=== PATIENT | male | born 1960 | race American Indian/Alaskan Native ===

== ENCOUNTER 2021-03-22 19:34 | Inpatient (IN) | payer SELFPAY ==
[2021-03-22] MEDS ORDERED: MORPHINE 4 MG/1 ML INJ IV ONE ×2 (21:44→23:58)
[2021-03-22] MEDS ORDERED: ONDANSETRON 4 MG/2 ML INJ IV ONE (21:44)
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
[2021-03-22] MEDS ORDERED: MORPHINE 2 MG/1 ML INJ ONE ×2 (22:00→23:59)
[2021-03-22 22:04] LABS: Hematocrit 52.2 % (35.5-45.6); Hemoglobin 16.7 gm/dl (11.8-15.2); Mean Corpuscular HGB Conc 32 % (32-34); Mean Corpuscular Volume 91 fl (84-94); Platelet Count 264 K/mm3 (140-440); Red Blood Count 5.75 M/mm3 (3.65-5.03); Red Cell Distribution Width 14.8 % (13.2-15.2)
[2021-03-22 22:20] LABS: BUN/Creatinine Ratio 11; Blood Urea Nitrogen 10 mg/dL (9-20); Calcium 10.4 mg/dL (8.4-10.2); Hemolysis Index 41
[2021-03-22 23:31] LABS: Myelocytes # (Manual) 0.1 K/mm3; Total Cells Counted 100
[2021-03-22 23:34] LABS: Platelet Estimate Consistent w Auto; Target Cells 1+
--- NOTE | 2021-03-22 23:50 | Cat Scan Report ---
CT ABDOMEN AND PELVIS WITH IV CONTRAST INDICATION: Abdominal Pain inguinal hernia. COMPARISON: None available. TECHNIQUE: All CT scans at this facility use dose modulation, automated exposure control, iterative reconstructi on or weight based dosing, when appropriate, to reduce radiation dose to as low as reasonably achieva ble. FINDINGS: Lung Bases: No significant abnormality. Skeletal System: No acute abnormality. ABDOMEN: Liver: No significant abnormality. Gallbladder: No significant abnormality. Bile Ducts: No significant abnormality. Adrenals: There is mild thickening of the adrenal glands. Right Kidney: No significant abnormality. Left Kidney: No significant abnormality. Pancreas: No significant abnormality. Spleen: No significant abnormality. Upper GI tract: Stomach is dilated with fluid. Proximal and mid small bowel are dilated with fluid. T ransition point is seen within small bowel entering the large left inguinal hernia. Lymph Nodes: No significant adenopathy. Aorta: No significant abnormality. Additional Findings: No significant abnormality. PELVIS: Colon: No acute abnormality. Urinary Bladder and Distal Ureters: No significant abnormality. Appendix: No significant abnormality. Lymph Nodes: No significant adenopathy. Additional Findings: Large left internal hernia extending into the scrotum contains a short segment o f colon, numerous loops of small bowel, and a small amount of fluid. IMPRESSION: 1. High-grade small bowel obstruction secondary to large, bowel containing left inguinal hernia. 2. Incidental findings, as above. Signer Name: Дмитрий Trinidad MD Signed: 03/22/2021 11:46 PM Workstation Name: [id number]
[2021-03-22] MEDS ORDERED: HYDROcodone/ACETAMINOPHEN 5-325 MG TAB PO ONE (23:58)
[2021-03-23] MEDS ORDERED: SODIUM CHLORIDE 0.9% 1000 ML 1,000 ML IV ONE ×2 (00:19)
[2021-03-23] MEDS ORDERED: ONDANSETRON 4 MG/2 ML INJ IV PRN ×2 (01:49→18:47)
[2021-03-23] MEDS ORDERED: ACETAMINOPHEN 325 MG TAB PO PRN (01:49)
--- NOTE | 2021-03-23 02:07 | History and Physical Report ---
History of Present Illness Date of examination: 03/23/21 Date of admission: 03/23/2021 Chief complaint: Abdominal Pain History of present illness: 60-year-old -[place] male with no significant past medical history except for hernia repair in the past presenting to the emergency room today complaining of abdominal pain. Abdominal pain is said to be in the left lower abdomen and the left scrotal area. He has been having associated nausea and vomiting. He indicates he has been having some bilious vomitus. He denies any diarrhea denies any constipation. Patient was seen at [facility] about 2 years ago and was supposed to be having inguinal hernia surgery sometime in August of this year however, surgery was postponed because of the Covid pandemic. Work-up in the emergency room today was significant for hemoglobin of 16.7 and hematocrit of 52.2. Patient had a calcium level of 10.4. CT of the abdomen and pelvis reveals high-grade small bowel obstruction secondary to large bowel containing left inguinal hernia. General surgeon Dr. Montero has been consulted by the ER physician. Past History Past Medical History: No medical history Past Surgical History: hernia repair Social history: smoking (Current daily smoker) Family history: no significant family history Medications and Allergies Allergies Allergy/AdvReac Type Severity Reaction Status Date / Time No Known Allergies Allergy Unverified 03/22/21 19:51 Active Meds: Active Medications Acetaminophen (Acetaminophen 325 Mg Tab) 650 mg PO Q4H PRN PRN Reason: Pain MILD(1-3)/Fever >100.5/CROWE Sodium Chloride (Nacl 0.9% 1000 Ml) 1,000 mls @ 125 mls/hr IV DIRECT OMARI Morphine Sulfate (Morphine 2 Mg/1 Ml Inj) 2 mg IV Q4H PRN PRN Reason: Pain, Moderate (4-6) Morphine Sulfate (Morphine 2 Mg/1 Ml Inj) 4 mg IV Q4H PRN PRN Reason: Pain , Severe (7-10) Ondansetron HCl (Ondansetron 4 Mg/2 Ml Inj) 4 mg IV Q8H PRN PRN Reason: Nausea And Vomiting Sodium Chloride (Sodium Chloride 0.9% 10 Ml Flush Syringe) 10 ml IV BID OMARI Sodium Chloride (Sodium Chloride 0.9% 10 Ml Flush Syringe) 10 ml IV PRN PRN PRN Reason: LINE FLUSH Review of Systems Constitutional: no fever, no chills Ears, nose, mouth and throat: no nasal congestion, no sore throat Cardiovascular: no chest pain, no palpitations Respiratory: no cough, no shortness of breath Gastrointestinal: abdominal pain, nausea, vomiting, no diarrhea, no constipation Genitourinary Male: no dysuria, no hematuria, no nocturia Musculoskeletal: no neck pain, no low back pain Integumentary: no rash, no pruritis Neurological: no headaches, no confusion Psychiatric: no anxiety, no depression Endocrine: no polyphagia, no polydipsia, no polyuria, no nocturia Exam - Constitutional Vitals: Temp Pulse Resp BP Pulse Ox 98.5 F 109 H 24 160/98 98 03/22/21 19:47 03/22/21 19:47 03/22/21 19:47 03/22/21 19:47 03/22/21 19:47 General appearance: Present: no acute distress, well-nourished - EENT Eyes: Present: PERRL, EOM intact. Absent: scleral icterus ENT: hearing intact, clear oral mucosa, dentition normal - Neck Neck: Present: supple, normal ROM - Respiratory Respiratory effort: normal Respiratory: bilateral: CTA - Cardiovascular Rhythm: regular Heart Sounds: Present: S1 & S2. Absent: systolic murmur, diastolic murmur, rub, click - Extremities Extremities: no ischemia, pulses intact, pulses symmetrical, No edema, normal temperature, normal color, Full ROM Peripheral Pulses: within normal limits - Abdominal General gastrointestinal: Present: soft, tender (Mild tenderness left lower quadrant ,no rebound tenderness and no guarding), non-distended, normal bowel sounds, hernia (Huge non-reducible left inguinal hernia.). Absent: mass - Integumentary Integumentary: Present: clear, warm, dry, normal turgor. Absent: rash - Musculoskeletal Musculoskeletal: strength equal bilaterally - Psychiatric Psychiatric: appropriate mood/affect, intact judgment & insight, memory intact, cooperative - Neurologic Neurologic: CNII-XII intact, no focal deficits, moves all extremities Results - Labs CBC & Chem 7: 03/22/21 21:48 03/22/21 21:48 Labs: Abnormal lab results 03/22/21 03/22/21 Range/Units 21:48 21:48 RBC 5.75 H (3.65-5.03) M/mm3 Hgb 16.7 H (11.8-15.2) gm/dl Hct 52.2 H (35.5-45.6) % Seg Neuts % (Manual) 93.0 H (40.0-70.0) % Lymphocytes % (Manual) 5.0 L (13.4-35.0) % Seg Neutrophils # Man 10.2 H (1.8-7.7) K/mm3 Lymphocytes # (Manual) 0.6 L (1.2-5.4) K/mm3 Chloride 97.6 L (98-107) mmol/L Carbon Dioxide 20 L (22-30) mmol/L Glucose 130 H (75-100) mg/dL Calcium 10.4 H (8.4-10.2) mg/dL Assessment and Plan - Patient Problems (1) Incarcerated left inguinal hernia Current Visit: Yes Status: Acute Plan to address problem: General surgery has been consulted for evaluation and recommendations. Meanwhile we will place on analgesic medications as needed. (2) Small bowel obstruction Current Visit: Yes Status: Acute Plan to address problem: Secondary to the incarcerated inguinal hernia. Patient currently n.p.o. NG tube also to be placed. Will await further evaluation by general surgery. (3) DVT prophylaxis Current Visit: Yes Status: Acute Plan to address problem: Patient placed on sequential compression device. (4) Full code status Current Visit: Yes Status: Acute Plan to address problem: Patient is full code.
[2021-03-23] MEDS: MORPHINE 2 MG/1 ML INJ IV PRN ×3 (04:38→13:46)
[2021-03-23] MEDS: SODIUM CHLORIDE 0.9% 1000 ML 1,000 ML IV SCH ×2 (04:39→11:16)
[2021-03-23] MEDS ORDERED: PHENOL 1.4% 177 ML BOTTLE MM PRN (10:18)
--- NOTE | 2021-03-23 13:20 | Event Note ---
Date: 03/23/21 Patient seen and examined at the bedside. Currently with NG tube to suction. Reports improvement in abdominal pain. Awaiting Surgical evaluation for next steps.
--- NOTE | 2021-03-23 13:34 | Anesthesia Consultation ---
Anesthesia Consult and Med Hx Date of service: 03/23/21 - Airway Anesthetic Teeth Evaluation: Good ROM Head & Neck: Adequate Mental/Hyoid Distance: Adequate Mallampati Class: Class II Intubation Access Assessment: Good - Pulmonary Exam CTA: Yes - Cardiac Exam Cardiac Exam: No Murmur - Pre-Operative Health Status ASA Pre-Surgery Classification: ASA2 Proposed Anesthetic Plan: General - Pre-Anesthesia Comment Pre-Anesthesia Comments: right side cysts chin and neck - Pulmonary Hx Smoking: Yes (1/3 pack a day) Hx Asthma: No COPD: No Hx Pneumonia: No - Cardiovascular System Hx Hypertension: Yes - Endocrine Hx End Stage Renal Disease: No - Other Systems Hx Alcohol Use: No Hx Cancer: No - Additional Comments Anesthesia Medical History Comments: bowel obstruction possibly to incarcerated L inguinal hernia
--- NOTE | 2021-03-23 13:35 | Anesthesia Day of Surgery ---
Anesthesia Day of Surgery - Day of Surgery Patient Examined: Yes Patient H&P Reviewed: Yes Patient is NPO: Yes
[2021-03-23] MEDS ORDERED: ROCURONIUM 50 MG/5 ML INJ IV ONE (15:45)
[2021-03-23] MEDS ORDERED: fentaNYL 100 MCG/2 ML INJ ONE (15:45)
[2021-03-23] MEDS ORDERED: propofoL 200 MG/20 ML VIAL IV ONE (15:45)
[2021-03-23] MEDS ORDERED: LIDOCAINE MPF (2%) 20 MG/1 ML VIAL 5 ML ONE (15:45)
[2021-03-23] MEDS ORDERED: MIDAZOLAM 2 MG/2 ML INJ ONE ×2 (15:45→16:44)
--- NOTE | 2021-03-23 16:14 | Consultation ---
History of Present Illness Consult date: 03/23/21 Reason for consult: abdominal pain - History of present illness History of present illness: 60 yo male with abdominal pain, N/V secondary to a incarcerated LIH. Past History Past Medical History: No medical history Past Surgical History: hernia repair Social history: smoking (Current daily smoker) Family history: no significant family history Medications and Allergies Allergies Allergy/AdvReac Type Severity Reaction Status Date / Time No Known Allergies Allergy Unverified 03/22/21 19:51 Active Meds: Active Medications Acetaminophen (Acetaminophen 325 Mg Tab) 650 mg PO Q4H PRN PRN Reason: Pain MILD(1-3)/Fever >100.5/CROWE Sodium Chloride (Nacl 0.9% 1000 Ml) 1,000 mls @ 125 mls/hr IV DIRECT [facility] Last Admin: 03/23/21 11:16 Dose: 125 mls/hr Documented by: Morphine Sulfate (Morphine 2 Mg/1 Ml Inj) 2 mg IV Q4H PRN PRN Reason: Pain, Moderate (4-6) Morphine Sulfate (Morphine 2 Mg/1 Ml Inj) 4 mg IV Q4H PRN PRN Reason: Pain , Severe (7-10) Last Admin: 03/23/21 13:46 Dose: 4 mg Documented by: Ondansetron HCl (Ondansetron 4 Mg/2 Ml Inj) 4 mg IV Q8H PRN PRN Reason: Nausea And Vomiting Last Admin: 03/23/21 08:31 Dose: 4 mg Documented by: Phenol (Phenol 1.4% 177 Ml Bottle) 1 spray MM Q4H PRN PRN Reason: Sore Throat Last Admin: 03/23/21 11:14 Dose: 1 spray Documented by: Sodium Chloride (Sodium Chloride 0.9% 10 Ml Flush Syringe) 10 ml IV BID OMARI Last Admin: 03/23/21 11:14 Dose: 10 ml Documented by: Sodium Chloride (Sodium Chloride 0.9% 10 Ml Flush Syringe) 10 ml IV PRN PRN PRN Reason: LINE FLUSH Review of Systems All systems: negative Exam Vital Signs Temp Pulse Resp BP Pulse Ox 98.5 F 109 H 24 160/98 98 03/22/21 19:47 03/22/21 19:47 03/22/21 19:47 03/22/21 19:47 03/22/21 19:47 - General physical appearance Positive: well developed, well nourished, no distress - Eyes Positive: PERRL, normal occular movement - ENT Positive: normal pinna, normal nares, normal mucosa, no hearing loss, no congestion - Neck Positive: no masses, no bruits, trachea midline, no venous distension - Respiratory Positive: normal expansion, normal respiratory effort, clear to auscultation - Cardiovascular Rhythm: regular Heart Sounds: Present: S1 & S2. Absent: rub, click - Extremities Extremities: no ischemia, pulses symmetrical, No edema - Breasts Breasts: normal, no mass, no skin changes - Abdomen Abdomen: Present: soft, bowel sounds hypoactive, other (There is a large, incarcerated, slightly tender LIH. ). Absent: tender, distended Hernia: none - Genitourinary Male Genitourinary: normal Female Genitourinary: normal - Integumentary no rash, no growths, no abnormal pigmentation - Neurologic Neurologic: alert and oriented to time, place and person, motor strength and sensation are grossly intact - Musculoskeletal normal gait, normal posture - Psychiatric Psychiatric: appropriate mood/affect, intact judgment & insight Results - Labs 03/22/21 21:48 03/22/21 21:48 Abnormal lab results 03/22/21 03/22/21 Range/Units 21:48 21:48 RBC 5.75 H (3.65-5.03) M/mm3 Hgb 16.7 H (11.8-15.2) gm/dl Hct 52.2 H (35.5-45.6) % Seg Neuts % (Manual) 93.0 H (40.0-70.0) % Lymphocytes % (Manual) 5.0 L (13.4-35.0) % Seg Neutrophils # Man 10.2 H (1.8-7.7) K/mm3 Lymphocytes # (Manual) 0.6 L (1.2-5.4) K/mm3 Chloride 97.6 L (98-107) mmol/L Carbon Dioxide 20 L (22-30) mmol/L Glucose 130 H (75-100) mg/dL Calcium 10.4 H (8.4-10.2) mg/dL Diabetes panel 03/22/21 Range/Units 21:48 Sodium 139 (137-145) mmol/L Potassium 4.6 (3.6-5.0) mmol/L Chloride 97.6 L (98-107) mmol/L Carbon Dioxide 20 L (22-30) mmol/L BUN 10 (9-20) mg/dL Creatinine 0.9 (0.8-1.3) mg/dL Glucose 130 H (75-100) mg/dL Calcium 10.4 H (8.4-10.2) mg/dL Calcium panel 03/22/21 Range/Units 21:48 Calcium 10.4 H (8.4-10.2) mg/dL Pituitary panel 03/22/21 Range/Units 21:48 Sodium 139 (137-145) mmol/L Potassium 4.6 (3.6-5.0) mmol/L Chloride 97.6 L (98-107) mmol/L Carbon Dioxide 20 L (22-30) mmol/L BUN 10 (9-20) mg/dL Creatinine 0.9 (0.8-1.3) mg/dL Glucose 130 H (75-100) mg/dL Calcium 10.4 H (8.4-10.2) mg/dL Adrenal panel 03/22/21 Range/Units 21:48 Sodium 139 (137-145) mmol/L Potassium 4.6 (3.6-5.0) mmol/L Chloride 97.6 L (98-107) mmol/L Carbon Dioxide 20 L (22-30) mmol/L BUN 10 (9-20) mg/dL Creatinine 0.9 (0.8-1.3) mg/dL Glucose 130 H (75-100) mg/dL Calcium 10.4 H (8.4-10.2) mg/dL - Imaging CT scan - abdomen: report reviewed CT scan - pelvis: report reviewed Assessment and Plan - Patient Problems (1) Incarcerated left inguinal hernia Current Visit: Yes Status: Acute Plan to address problem: 1) NG decompression 2) To OR for open repair and relief of SBO.
[2021-03-23] MEDS ORDERED: BUPIVACAINE/PF (0.5%) 5 MG/1 ML 30 ML VIAL INFILTRATI ONE ×2 (16:59→17:04)
[2021-03-23] MEDS ORDERED: SODIUM CHLORIDE 0.9% IRR 1,500 ML BOTTLE IR ONE (17:04)
[2021-03-23] MEDS ORDERED: HYDROmorphone 1 MG/1 ML INJ ONE (18:07)
[2021-03-23] MEDS ORDERED: ePHEDrine SULFATE 50 MG/1 ML INJ ONE (18:31)
[2021-03-23] MEDS ORDERED: NEOSTIGMINE 10MG/10 ML INJ MDV ONE (18:36)
[2021-03-23] MEDS ORDERED: GLYCOPYRROLATE 0.4 MG/2 ML INJ ONE ×2 (18:36)
[2021-03-23] MEDS ORDERED: HYDROmorphone 1 MG/1 ML INJ IV PRN ×2 (18:47)
[2021-03-23] MEDS ORDERED: ONDANSETRON 4 MG/2 ML INJ ONE (19:00)
[2021-03-23] MEDS ORDERED: KETOROLAC 30 MG/1 ML INJ ONE (19:00)
[2021-03-23] MEDS ORDERED: dexAMETHasone 20 MG/5 ML VIAL ONE (19:00)
--- NOTE | 2021-03-23 19:05 | Procedure Note ---
Date of procedure: 03/23/21 Pre-op diagnosis: SBO 2/2 incarcerated LIH Post-op diagnosis: same (Also, left hydrocele) Procedure: 1) Open repair of LIH 2) Left hydrocelectomy Description of procedure: Pt was placed supine on the OR table. GETA was administered. Lower abdomen, penis and scrotum were prepped and draped. The proposed incision was infiltrated with 8 ml of 0.5% Marcaine. A curvilinear suprapubic incision was made. SQ tissue was transected with the Bovie. Externa l oblique aponeurosis was exposed. The aponeurosis was incised over the inguinal canal through the external inguinal ring. Digital dissection was performed about the hernia sac in the scrotum until the hernia sac was delivered into the wound. During this manipulation, the incarcerated bowel was reduced. The sac initially thought to be the hernia sac was entered and was found to be a hydrocele. The hydrocele sac was excised. Further dissection resulted in identification of the hernia sac. The sac was entered and was dissected off of the cord structures. The hernia was determined to be of the indirect type. The broad based sac was dissected down to it's fascial margins and was excised. A Bassini type repair was performed by approximating the conjoined tendon medially to the shelving portion of Poupart's ligament laterally with multiple interrupted sutures of 0-Ethibond. The external oblique aponeurosis was approximated with a running suture of 3-0 Vicryl. Skin was approximated with a running subcuticular suture of 4-0 Monocryl. Skin glue was applied followed by a pressure dressing of 4 X 4's secured with Medipore tape. A scrotal support was also placed to help diminish the expected scrotal seroma. Pt tolerated the procedure well. Pt was taken to PACU in stable condition. Anesthesia: GETA Surgeon: YENI TRINIDAD Estimated blood loss: 50-100ml Pathology: none Condition: stable Disposition: PACU
--- NOTE | 2021-03-23 19:26 | Post Anesthesia Evaluation ---
- Post Anesthesia Evaluation Patient Participated: Yes Airway Patent: Yes Stable Respiratory Function: Yes Nausea/Vomiting: No Temp > 96.8F: Yes Pain Manageable: Yes Adequeate Hydration: Yes Anesthesia Complications: No Block Receding Appropriately: Not Applicable Patient on Ventilator: No
[2021-03-24] MEDS: SODIUM CHLORIDE 0.9% 1000 ML 1,000 ML IV SCH (04:12)
[2021-03-24 06:13] LABS: Basophils % (Auto) 0.1 % (0.0-1.8); Hematocrit 40.1 % (35.5-45.6); Hemoglobin 13.1 gm/dl (11.8-15.2); Lymphocytes # (Auto) 0.6 K/mm3 (1.2-5.4); Lymphocytes % (Auto) 5.1 % (13.4-35.0); Mean Corpuscular HGB Conc 33 % (32-34); Mean Corpuscular Volume 92 fl (84-94); Monocytes # (Auto) 0.8 K/mm3 (0.0-0.8); Monocytes % (Auto) 6.3 % (0.0-7.3); Platelet Count 197 K/mm3 (140-440); Red Blood Count 4.37 M/mm3 (3.65-5.03); Red Cell Distribution Width 14.7 % (13.2-15.2)
[2021-03-24 06:22] LABS: INR 0.96 (0.87-1.13)
[2021-03-24 06:27] LABS: BUN/Creatinine Ratio 16; Blood Urea Nitrogen 13 mg/dL (9-20); Calcium 7.7 mg/dL (8.4-10.2); Hemolysis Index 2
[2021-03-24] MEDS ORDERED: CALCIUM GLUCONATE 2,000 MG in SODIUM CHLORIDE 0.9% 100 ML IV ONE (09:00)
--- NOTE | 2021-03-24 14:47 | Progress Note ---
Assessment and Plan Assessment and plan: Patient is 60-year-old male with no significant past medical history who presented for worsening left inguinal pain and abdominal pain complicated by nausea and bilious, nonbloody vomiting. The patient was last seen at [facility] approximately 2 years ago, and he was supposed to have an inguinal he rnia repair in August 2020; however, the surgery was postponed in the setting of the Covid [address] abdomen/pelvis revealed high-grade small bowel obstruction secondary to a large bowel containing left inguinal hernia. #High-grade small bowel obstruction #Incarcerated left inguinal hernia -Status post left inguinal hernia repair (POD 1) by general surgery; appreciate recs -NG tube with intermittent suction in place for resolution of small bowel obstruction. Currently n.p.o. -Continue analgesic medications as needed. Remain mindful that opioids will slow down bowel transit. -Consider initiation of D5W in the setting of patient being n.p.o. -Continue to monitor Disposition Plan: Continue medical management. Total Time Spent with Patient (Minutes): 40 minutes History Interval history: Patient underwent correction of left inguinal hernia yesterday and was found to have bowel obstruction. Patient tolerated procedure well. Hospitalist Physical - Constitutional Vitals: Temp Pulse Resp BP Pulse Ox 98.2 F 51 L 18 141/72 98 03/24/21 11:05 03/24/21 11:05 03/24/21 11:05 03/24/21 11:05 03/24/21 11:05 General appearance: Present: no acute distress, well-nourished - EENT Eyes: Present: PERRL, EOM intact ENT: hearing intact, clear oral mucosa, dentition normal, other (NGT in place (on intermittent suction)) - Neck Neck: Present: supple, normal ROM - Respiratory Respiratory effort: normal - Cardiovascular Rhythm: regular Heart Sounds: Present: S1 & S2 - Extremities Extremities: no ischemia, pulses intact, pulses symmetrical, No edema, normal temperature, normal color Extremity abnormal: other (Pressure bandage on L groin at site of inguinal repair) - Abdominal General gastrointestinal: soft, non-tender, non-distended, normal bowel sounds - Integumentary Integumentary: Present: clear, warm, dry - Psychiatric Psychiatric: appropriate mood/affect, intact judgment & insight, memory intact, cooperative - Neurologic Neurologic: CNII-XII intact, moves all extremities - Allied Health Allied health notes reviewed: nursing Results - Labs CBC & Chem 7: 03/24/21 04:00 03/24/21 04:00 Labs: Laboratory Last Values WBC 12.4 K/mm3 (4.5-11.0) H 03/24/21 04:00 RBC 4.37 M/mm3 (3.65-5.03) 03/24/21 04:00 Hgb 13.1 gm/dl (11.8-15.2) D 03/24/21 04:00 Hct 40.1 % (35.5-45.6) D 03/24/21 04:00 MCV 92 fl (84-94) 03/24/21 04:00 MCH 30 pg (28-32) 03/24/21 04:00 MCHC 33 % (32-34) 03/24/21 04:00 RDW 14.7 % (13.2-15.2) 03/24/21 04:00 Plt Count 197 K/mm3 (140-440) 03/24/21 04:00 Lymph % (Auto) 5.1 % (13.4-35.0) L 03/24/21 04:00 [place] % (Auto) 6.3 % (0.0-7.3) 03/24/21 04:00 Eos % (Auto) 0.0 % (0.0-4.3) 03/24/21 04:00 Baso % (Auto) 0.1 % (0.0-1.8) 03/24/21 04:00 Lymph # (Auto) 0.6 K/mm3 (1.2-5.4) L 03/24/21 04:00 [place] # (Auto) 0.8 K/mm3 (0.0-0.8) 03/24/21 04:00 Eos # (Auto) 0.0 K/mm3 (0.0-0.4) 03/24/21 04:00 Baso # (Auto) 0.0 K/mm3 (0.0-0.1) 03/24/21 04:00 Add Manual Diff Complete 03/22/21 21:48 Total Counted 100 03/22/21 21:48 Seg Neutrophils % 88.5 % (40.0-70.0) H 03/24/21 04:00 Seg Neuts % (Manual) 93.0 % (40.0-70.0) H 03/22/21 21:48 Lymphocytes % (Manual) 5.0 % (13.4-35.0) L 03/22/21 21:48 Monocytes % (Manual) 1.0 % (0.0-7.3) 03/22/21 21:48 Myelocytes % 1.0 % 03/22/21 21:48 Nucleated RBC % Not Reportable 03/22/21 21:48 Seg Neutrophils # 11.0 K/mm3 (1.8-7.7) H 03/24/21 04:00 Seg Neutrophils # Man 10.2 K/mm3 (1.8-7.7) H 03/22/21 21:48 Band Neutrophils # 0.0 K/mm3 03/22/21 21:48 Lymphocytes # (Manual) 0.6 K/mm3 (1.2-5.4) L 03/22/21 21:48 Abs React Lymphs (Man) 0.0 K/mm3 03/22/21 21:48 Monocytes # (Manual) 0.1 K/mm3 (0.0-0.8) 03/22/21 21:48 Eosinophils # (Manual) 0.0 K/mm3 (0.0-0.4) 03/22/21 21:48 Basophils # (Manual) 0.0 K/mm3 (0.0-0.1) 03/22/21 21:48 Metamyelocytes # 0.0 K/mm3 03/22/21 21:48 Myelocytes # 0.1 K/mm3 03/22/21 21:48 Promyelocytes # 0.0 K/mm3 03/22/21 21:48 Blast Cells # 0.0 K/mm3 03/22/21 21:48 WBC Morphology Not Reportable 03/22/21 21:48 Hypersegmented Neuts Not Reportable 03/22/21 21:48 Hyposegmented Neuts Not Reportable 03/22/21 21:48 Hypogranular Neuts Not Reportable 03/22/21 21:48 Smudge Cells Not Reportable 03/22/21 21:48 Toxic Granulation Not Reportable 03/22/21 21:48 Toxic Vacuolation Not Reportable 03/22/21 21:48 Dohle Bodies Not Reportable 03/22/21 21:48 Pelger-Huet Anomaly Not Reportable 03/22/21 21:48 Wilbert Rods Not Reportable 03/22/21 21:48 Platelet Estimate Consistent w auto 03/22/21 21:48 Clumped Platelets Not Reportable 03/22/21 21:48 Plt Clumps, EDTA Not Reportable 03/22/21 21:48 Large Platelets Not Reportable 03/22/21 21:48 Giant Platelets Not Reportable 03/22/21 21:48 Platelet Satelliting Not Reportable 03/22/21 21:48 Plt Morphology Comment Not Reportable 03/22/21 21:48 RBC Morphology Not Reportable 03/22/21 21:48 Dimorphic RBCs Not Reportable 03/22/21 21:48 Polychromasia Not Reportable 03/22/21 21:48 Hypochromasia Not Reportable 03/22/21 21:48 Poikilocytosis Not Reportable 03/22/21 21:48 Anisocytosis Not Reportable 03/22/21 21:48 Microcytosis Not Reportable 03/22/21 21:48 Macrocytosis Not Reportable 03/22/21 21:48 Spherocytes Not Reportable 03/22/21 21:48 Pappenheimer Bodies Not Reportable 03/22/21 21:48 Sickle Cells Not Reportable 03/22/21 21:48 Target Cells 1+ 03/22/21 21:48 Tear Drop Cells Not Reportable 03/22/21 21:48 Ovalocytes Not Reportable 03/22/21 21:48 Helmet Cells Not Reportable 03/22/21 21:48 [place] Bodies Not Reportable 03/22/21 21:48 [place] Rings Not Reportable 03/22/21 21:48 Tru Cells Not Reportable 03/22/21 21:48 Bite Cells Not Reportable 03/22/21 21:48 Crenated Cell Not Reportable 03/22/21 21:48 Elliptocytes Not Reportable 03/22/21 21:48 Acanthocytes (Spur) Not Reportable 03/22/21 21:48 Rouleaux Not Reportable 03/22/21 21:48 Hemoglobin C Crystals Not Reportable 03/22/21 21:48 Schistocytes Not Reportable 03/22/21 21:48 Malaria parasites Not Reportable 03/22/21 21:48 Earl Bodies Not Reportable 03/22/21 21:48 Hem Pathologist Commnt No 03/22/21 21:48 PT 13.8 Sec. (12.2-14.9) 03/24/21 04:00 INR 0.96 (0.87-1.13) 03/24/21 04:00 Sodium 142 mmol/L (137-145) 03/24/21 04:00 Potassium 4.0 mmol/L (3.6-5.0) 03/24/21 04:00 Chloride 108.5 mmol/L (98-107) H 03/24/21 04:00 Carbon Dioxide 23 mmol/L (22-30) 03/24/21 04:00 Anion Gap 15 mmol/L 03/24/21 04:00 BUN 13 mg/dL (9-20) 03/24/21 04:00 Creatinine 0.8 mg/dL (0.8-1.3) 03/24/21 04:00 Estimated GFR > 60 ml/min 03/24/21 04:00 BUN/Creatinine Ratio 16 % 03/24/21 04:00 Glucose 92 mg/dL (75-100) 03/24/21 04:00 Calcium 7.7 mg/dL (8.4-10.2) L D 03/24/21 04:00 Adams/IV: Voiding Method Urinal Active Medications - Current Medications Current Medications: Generic Name Dose Route Start Last Admin Trade Name Freq PRN Reason Stop Dose Admin Acetaminophen 650 mg 03/23/21 01:49 Acetaminophen 325 Mg Tab PO Q4H PRN Pain MILD(1-3)/Fever >100.5/CROWE Hydromorphone HCl 0.25 mg 03/23/21 18:47 Hydromorphone 1 Mg/1 Ml Inj IV 03/24/21 18:46 Q10MIN PRN Pain, Moderate (4-6) Hydromorphone HCl 0.5 mg 03/23/21 18:47 Hydromorphone 1 Mg/1 Ml Inj IV 03/24/21 18:46 Q10MIN PRN Pain , Severe (7-10) Sodium Chloride 1,000 mls @ 125 mls/hr 03/23/21 02:00 03/24/21 04:12 Nacl 0.9% 1000 Ml IV 125 mls/hr DIRECT OMARI Administration Morphine Sulfate 2 mg 03/23/21 01:49 Morphine 2 Mg/1 Ml Inj IV Q4H PRN Pain, Moderate (4-6) Morphine Sulfate 4 mg 03/23/21 01:49 03/23/21 13:46 Morphine 2 Mg/1 Ml Inj IV 4 mg Q4H PRN Administration Pain , Severe (7-10) Ondansetron HCl 4 mg 03/23/21 01:49 03/23/21 08:31 Ondansetron 4 Mg/2 Ml Inj IV 4 mg Q8H PRN Administration Nausea And Vomiting Phenol 1 spray 03/23/21 10:18 03/23/21 11:14 Phenol 1.4% 177 Ml Bottle MM 1 spray Q4H PRN Administration Sore Throat Sodium Chloride 10 ml 03/23/21 10:00 03/24/21 09:42 Sodium Chloride 0.9% 10 Ml Flush Syringe IV 10 ml BID OMARI Administration Sodium Chloride 10 ml 03/23/21 01:49 Sodium Chloride 0.9% 10 Ml Flush Syringe IV PRN PRN LINE FLUSH Nutrition/Malnutrition Assess - Dietary Evaluation Nutrition/Malnutrition Findings: Nutrition Notes Start: 03/23/21 17:11 Freq: Status: Active Protocol: Document 03/23/21 17:11 JUDY (Rec: 03/23/21 17:26 JUDY [id number]) Nutrition Notes 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 Current Diet NPO (since B 03/23). Labs/Tests 03/22: Cl 97.6, CO2 20, Glu 130, Ca 10.4. Pertinent Medications 03/23: Nutritionally unremarkable. Height 5 ft 10 in Weight 72.575 kg [place] Body Weight (kg) 75.45 BMI 22.9 Weight Status Appropriate Subjective/Other Information RD consult for Skin risk assessment. Percent of energy/protein needs met: Pt currently on NPO. Burn Absent Trauma Absent GI Symptoms None Food Allergy No Skin Integrity/Comment Clear, warm, dry. Current % PO Other Minimum of two criteria No #1 Nutrition Diagnosis No nutrition diagnosis at this time Comments: Pt shows no signs of concern for Skin risk at the time. Is patient on ventilator? No Is Patient Ambulatory and/or Out of Bed No REE-([place] [facility]-confined to bed) 1855.284 Kcal/Kg value to use for calculation 30 Approximate Energy Requirements Using 2177 kcal/Kg Calculation Used for Recommendations Kcal/kg Additional Notes Protein: 1-1.2 g/Kg; 75-90 g/ day (from IBW+surgery). Fluids: 1 ml/Kcal, or as per MD. Nutrition Intervention Change Diet Order: Continue NPO, as per MD. When pertinent, advance to Regular Diet. Goal #1 Maintain body weight within +/ -3% of current BWt during LOS. Goal #2 Reach and maintain acceptable chemistry lab values during LOS. Follow-Up By: 03/25/21 Additional Comments Continue monitoring Hydration and BM. When pertinent, food tolerance and %PO intake of meals.
--- NOTE | 2021-03-24 17:25 | Progress Note ---
Assessment and Plan - Patient Problems (1) Incarcerated left inguinal hernia Current Visit: Yes Status: Acute Plan to address problem: 1) DC NG 2) CLD 3) CBC in the am Subjective Date of service: 03/24/21 Patient Reports: Positive: no new complaints, feels better, pain is less, flatus Objective Vital Signs - 12hr 03/24/21 03/24/21 03/24/21 05:56 10:00 11:05 Temperature 98.8 F 98.2 F Pulse Rate 50 L 51 L Respiratory 18 18 Rate Blood Pressure 127/70 141/72 O2 Sat by Pulse 97 98 98 Oximetry - Abdomen soft, not tender, bowel sounds normal, not distended, not rebound, not guarding - Labs 03/24/21 04:00 03/24/21 04:00 Diabetes panel 03/24/21 Range/Units 04:00 Sodium 142 (137-145) mmol/L Potassium 4.0 (3.6-5.0) mmol/L Chloride 108.5 H (98-107) mmol/L Carbon Dioxide 23 (22-30) mmol/L BUN 13 (9-20) mg/dL Creatinine 0.8 (0.8-1.3) mg/dL Glucose 92 (75-100) mg/dL Calcium 7.7 L D (8.4-10.2) mg/dL Calcium panel 03/24/21 Range/Units 04:00 Calcium 7.7 L D (8.4-10.2) mg/dL Pituitary panel 03/24/21 Range/Units 04:00 Sodium 142 (137-145) mmol/L Potassium 4.0 (3.6-5.0) mmol/L Chloride 108.5 H (98-107) mmol/L Carbon Dioxide 23 (22-30) mmol/L BUN 13 (9-20) mg/dL Creatinine 0.8 (0.8-1.3) mg/dL Glucose 92 (75-100) mg/dL Calcium 7.7 L D (8.4-10.2) mg/dL Adrenal panel 03/24/21 Range/Units 04:00 Sodium 142 (137-145) mmol/L Potassium 4.0 (3.6-5.0) mmol/L Chloride 108.5 H (98-107) mmol/L Carbon Dioxide 23 (22-30) mmol/L BUN 13 (9-20) mg/dL Creatinine 0.8 (0.8-1.3) mg/dL Glucose 92 (75-100) mg/dL Calcium 7.7 L D (8.4-10.2) mg/dL
[2021-03-24] MEDS: MORPHINE 2 MG/1 ML INJ IV PRN (17:53)
[2021-03-25] MEDS: SODIUM CHLORIDE 0.9% 1000 ML 1,000 ML IV SCH ×3 (06:16→23:11)
[2021-03-25] MEDS: MORPHINE 2 MG/1 ML INJ IV PRN ×3 (06:22→20:39)
[2021-03-25 10:59] LABS: Basophils % (Auto) 0.5 % (0.0-1.8); Eosinophils % (Auto) 0.4 % (0.0-4.3); Hematocrit 39.2 % (35.5-45.6); Hemoglobin 12.8 gm/dl (11.8-15.2); Lymphocytes # (Auto) 0.7 K/mm3 (1.2-5.4); Lymphocytes % (Auto) 7.8 % (13.4-35.0); Mean Corpuscular HGB Conc 33 % (32-34); Mean Corpuscular Volume 91 fl (84-94); Monocytes # (Auto) 0.4 K/mm3 (0.0-0.8); Monocytes % (Auto) 4.7 % (0.0-7.3); Platelet Count 180 K/mm3 (140-440); Red Blood Count 4.29 M/mm3 (3.65-5.03); Red Cell Distribution Width 14.7 % (13.2-15.2)
--- NOTE | 2021-03-25 11:03 | Progress Note ---
Assessment and Plan - Patient Problems (1) Incarcerated left inguinal hernia Current Visit: Yes Status: Acute Plan to address problem: 1) Okay for discharge. 2) F/u in my office in 2 weeks. 3) DC andrade 4) May shower tomorrow. 5) Regular diet 6) No lifting or straining 7) Rx - Narcotic of choice Subjective Date of service: 03/25/21 Patient Reports: Positive: no new complaints, feels better, pain is less, tolerating liquids well, flatus, bowel movement. Negative: blood in stool, nausea, vomiting, shortness of breath Objective Vital Signs - 12hr 03/25/21 03/25/21 03/25/21 05:11 06:22 06:52 Temperature 98.4 F Pulse Rate 58 L Respiratory 20 18 18 Rate Blood Pressure 169/70 O2 Sat by Pulse 100 Oximetry - Abdomen soft, not tender, bowel sounds normal, not distended, not rebound, not guarding - Labs 03/25/21 09:55 03/24/21 04:00
[2021-03-25 13:13] LABS: Blood Urea Nitrogen 12 mg/dL (9-20); Calcium 8.2 mg/dL (8.4-10.2); Hemolysis Index 19
[2021-03-25 13:17] LABS: BUN/Creatinine Ratio 17
--- NOTE | 2021-03-25 13:47 | Progress Note ---
Assessment and Plan Assessment and plan: Patient is 60-year-old male with no significant past medical history who presented for worsening left inguinal pain and abdominal pain complicated by nausea and bilious, nonbloody vomiting. The patient was last seen at [facility] approximately 2 years ago, and he was supposed to have an inguinal he rnia repair in August 2020; however, the surgery was postponed in the setting of the Covid [address] abdomen/pelvis revealed high-grade small bowel obstruction secondary to a large bowel containing left inguinal hernia. #High-grade small bowel obstruction #Incarcerated left inguinal hernia -Status post left inguinal hernia repair (POD 2) by general surgery; appreciate recs -NG tube discontinued and patient transitioned to regular diet per general surgery -Continue analgesic medications as needed. -Continue to monitor #Discharge planning -Patient being discharged in a.m. -Clinic follow-up with Dr. Montero (general surgery) in 2 weeks Disposition Plan: Discharging home tomorrow. Total Time Spent with Patient (Minutes): 30 minutes History Interval history: No acute events overnight. Hospitalist Physical - Constitutional Vitals: Temp Pulse Resp BP Pulse Ox 98.2 F 54 L 18 140/68 97 03/25/21 11:46 03/25/21 11:46 03/25/21 11:46 03/25/21 11:46 03/25/21 11:46 General appearance: Present: no acute distress, well-nourished - EENT Eyes: Present: PERRL, EOM intact ENT: hearing intact, clear oral mucosa, dentition normal - Neck Neck: Present: supple, normal ROM - Respiratory Respiratory effort: normal Respiratory: bilateral: CTA - Cardiovascular Rhythm: regular Heart Sounds: Present: S1 & S2 - Extremities Extremities: no ischemia, pulses intact, pulses symmetrical, No edema, normal temperature, normal color Peripheral Pulses: within normal limits - Abdominal General gastrointestinal: soft, tender, non-distended, normal bowel sounds Localized gastrointestinal: tender: LLQ (Appropriate tenderness at left inguinal hernia surgical site) - Integumentary Integumentary: Present: clear, warm, dry - Psychiatric Psychiatric: appropriate mood/affect, intact judgment & insight, memory intact, cooperative - Neurologic Neurologic: CNII-XII intact, moves all extremities - Allied Health Allied health notes reviewed: nursing Results - Labs CBC & Chem 7: 03/25/21 09:55 03/25/21 09:55 Labs: Laboratory Last Values WBC 9.5 K/mm3 (4.5-11.0) 03/25/21 09:55 RBC 4.29 M/mm3 (3.65-5.03) 03/25/21 09:55 Hgb 12.8 gm/dl (11.8-15.2) 03/25/21 09:55 Hct 39.2 % (35.5-45.6) 03/25/21 09:55 MCV 91 fl (84-94) 03/25/21 09:55 MCH 30 pg (28-32) 03/25/21 09:55 MCHC 33 % (32-34) 03/25/21 09:55 RDW 14.7 % (13.2-15.2) 03/25/21 09:55 Plt Count 180 K/mm3 (140-440) 03/25/21 09:55 Lymph % (Auto) 7.8 % (13.4-35.0) L 03/25/21 09:55 [place] % (Auto) 4.7 % (0.0-7.3) 03/25/21 09:55 Eos % (Auto) 0.4 % (0.0-4.3) 03/25/21 09:55 Baso % (Auto) 0.5 % (0.0-1.8) 03/25/21 09:55 Lymph # (Auto) 0.7 K/mm3 (1.2-5.4) L 03/25/21 09:55 [place] # (Auto) 0.4 K/mm3 (0.0-0.8) 03/25/21 09:55 Eos # (Auto) 0.0 K/mm3 (0.0-0.4) 03/25/21 09:55 Baso # (Auto) 0.0 K/mm3 (0.0-0.1) 03/25/21 09:55 Add Manual Diff Complete 03/22/21 21:48 Total Counted 100 03/22/21 21:48 Seg Neutrophils % 86.6 % (40.0-70.0) H 03/25/21 09:55 Seg Neuts % (Manual) 93.0 % (40.0-70.0) H 03/22/21 21:48 Lymphocytes % (Manual) 5.0 % (13.4-35.0) L 03/22/21 21:48 Monocytes % (Manual) 1.0 % (0.0-7.3) 03/22/21 21:48 Myelocytes % 1.0 % 03/22/21 21:48 Nucleated RBC % Not Reportable 03/22/21 21:48 Seg Neutrophils # 8.3 K/mm3 (1.8-7.7) H 03/25/21 09:55 Seg Neutrophils # Man 10.2 K/mm3 (1.8-7.7) H 03/22/21 21:48 Band Neutrophils # 0.0 K/mm3 03/22/21 21:48 Lymphocytes # (Manual) 0.6 K/mm3 (1.2-5.4) L 03/22/21 21:48 Abs React Lymphs (Man) 0.0 K/mm3 03/22/21 21:48 Monocytes # (Manual) 0.1 K/mm3 (0.0-0.8) 03/22/21 21:48 Eosinophils # (Manual) 0.0 K/mm3 (0.0-0.4) 03/22/21 21:48 Basophils # (Manual) 0.0 K/mm3 (0.0-0.1) 03/22/21 21:48 Metamyelocytes # 0.0 K/mm3 03/22/21 21:48 Myelocytes # 0.1 K/mm3 03/22/21 21:48 Promyelocytes # 0.0 K/mm3 03/22/21 21:48 Blast Cells # 0.0 K/mm3 03/22/21 21:48 WBC Morphology Not Reportable 03/22/21 21:48 Hypersegmented Neuts Not Reportable 03/22/21 21:48 Hyposegmented Neuts Not Reportable 03/22/21 21:48 Hypogranular Neuts Not Reportable 03/22/21 21:48 Smudge Cells Not Reportable 03/22/21 21:48 Toxic Granulation Not Reportable 03/22/21 21:48 Toxic Vacuolation Not Reportable 03/22/21 21:48 Dohle Bodies Not Reportable 03/22/21 21:48 Pelger-Huet Anomaly Not Reportable 03/22/21 21:48 Wilbert Rods Not Reportable 03/22/21 21:48 Platelet Estimate Consistent w auto 03/22/21 21:48 Clumped Platelets Not Reportable 03/22/21 21:48 Plt Clumps, EDTA Not Reportable 03/22/21 21:48 Large Platelets Not Reportable 03/22/21 21:48 Giant Platelets Not Reportable 03/22/21 21:48 Platelet Satelliting Not Reportable 03/22/21 21:48 Plt Morphology Comment Not Reportable 03/22/21 21:48 RBC Morphology Not Reportable 03/22/21 21:48 Dimorphic RBCs Not Reportable 03/22/21 21:48 Polychromasia Not Reportable 03/22/21 21:48 Hypochromasia Not Reportable 03/22/21 21:48 Poikilocytosis Not Reportable 03/22/21 21:48 Anisocytosis Not Reportable 03/22/21 21:48 Microcytosis Not Reportable 03/22/21 21:48 Macrocytosis Not Reportable 03/22/21 21:48 Spherocytes Not Reportable 03/22/21 21:48 Pappenheimer Bodies Not Reportable 03/22/21 21:48 Sickle Cells Not Reportable 03/22/21 21:48 Target Cells 1+ 03/22/21 21:48 Tear Drop Cells Not Reportable 03/22/21 21:48 Ovalocytes Not Reportable 03/22/21 21:48 Helmet Cells Not Reportable 03/22/21 21:48 [place] Bodies Not Reportable 03/22/21 21:48 [place] Rings Not Reportable 03/22/21 21:48 [place] Cells Not Reportable 03/22/21 21:48 Bite Cells Not Reportable 03/22/21 21:48 Crenated Cell Not Reportable 03/22/21 21:48 Elliptocytes Not Reportable 03/22/21 21:48 Acanthocytes (Spur) Not Reportable 03/22/21 21:48 Rouleaux Not Reportable 03/22/21 21:48 Hemoglobin C Crystals Not Reportable 03/22/21 21:48 Schistocytes Not Reportable 03/22/21 21:48 Malaria parasites Not Reportable 03/22/21 21:48 Earl Bodies Not Reportable 03/22/21 21:48 Hem Pathologist Commnt No 03/22/21 21:48 PT 13.8 Sec. (12.2-14.9) 03/24/21 04:00 INR 0.96 (0.87-1.13) 03/24/21 04:00 Sodium 139 mmol/L (137-145) 03/25/21 09:55 Potassium 3.6 mmol/L (3.6-5.0) 03/25/21 09:55 Chloride 104.8 mmol/L (98-107) 03/25/21 09:55 Carbon Dioxide 22 mmol/L (22-30) 03/25/21 09:55 Anion Gap 16 mmol/L 03/25/21 09:55 BUN 12 mg/dL (9-20) 03/25/21 09:55 Creatinine 0.7 mg/dL (0.8-1.3) L 03/25/21 09:55 Estimated GFR > 60 ml/min 03/25/21 09:55 BUN/Creatinine Ratio 17 % 03/25/21 09:55 Glucose 140 mg/dL (75-100) H 03/25/21 09:55 Calcium 8.2 mg/dL (8.4-10.2) L 03/25/21 09:55 Phosphorus 2.10 mg/dL (2.5-4.5) L 03/25/21 09:55 Magnesium 2.10 mg/dL (1.7-2.3) 03/25/21 09:55 Adams/IV: Voiding Method Indwelling Catheter Active Medications - Current Medications Current Medications: Generic Name Dose Route Start Last Admin Trade Name Freq PRN Reason Stop Dose Admin Acetaminophen 650 mg 03/23/21 01:49 Acetaminophen 325 Mg Tab PO Q4H PRN Pain MILD(1-3)/Fever >100.5/CROWE Sodium Chloride 1,000 mls @ 125 mls/hr 03/23/21 02:00 03/25/21 06:16 Nacl 0.9% 1000 Ml IV 125 mls/hr DIRECT OMARI Administration Morphine Sulfate 2 mg 03/23/21 01:49 03/25/21 11:30 Morphine 2 Mg/1 Ml Inj IV 2 mg Q4H PRN Administration Pain, Moderate (4-6) Morphine Sulfate 4 mg 03/23/21 01:49 03/23/21 13:46 Morphine 2 Mg/1 Ml Inj IV 4 mg Q4H PRN Administration Pain , Severe (7-10) Ondansetron HCl 4 mg 03/23/21 01:49 03/23/21 08:31 Ondansetron 4 Mg/2 Ml Inj IV 4 mg Q8H PRN Administration Nausea And Vomiting Phenol 1 spray 03/23/21 10:18 03/23/21 11:14 Phenol 1.4% 177 Ml Bottle MM 1 spray Q4H PRN Administration Sore Throat Sodium Chloride 10 ml 03/23/21 10:00 03/25/21 10:54 Sodium Chloride 0.9% 10 Ml Flush Syringe IV 10 ml BID OMARI Administration Sodium Chloride 10 ml 03/23/21 01:49 Sodium Chloride 0.9% 10 Ml Flush Syringe IV PRN PRN LINE FLUSH Nutrition/Malnutrition Assess - Dietary Evaluation Nutrition/Malnutrition Findings: Nutrition Notes Start: 03/23/21 17:11 Freq: Status: Active Protocol: Document 03/23/21 17:11 JUDY (Rec: 03/23/21 17:26 JUDY [id number]) 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 Current Diet NPO (since B 03/23). Labs/Tests 03/22: Cl 97.6, CO2 20, Glu 130, Ca 10.4. Pertinent Medications 03/23: Nutritionally unremarkable. Height 5 ft 10 in Weight 72.575 kg [place] Body Weight (kg) 75.45 BMI 22.9 Weight Status Appropriate Subjective/Other Information RD consult for Skin risk assessment. Percent of energy/protein needs met: Pt currently on NPO. Burn Absent Trauma Absent GI Symptoms None Food Allergy No Skin Integrity/Comment Clear, warm, dry. Current % PO Other Minimum of two criteria No #1 Nutrition Diagnosis No nutrition diagnosis at this time Comments: Pt shows no signs of concern for Skin risk at the time. Is patient on ventilator? No Is Patient Ambulatory and/or Out of Bed No REE-([facility]-confined to bed) 1855.284 Kcal/Kg value to use for calculation 30 Approximate Energy Requirements Using 2177 kcal/Kg Calculation Used for Recommendations Kcal/kg Additional Notes Protein: 1-1.2 g/Kg; 75-90 g/ day (from IBW+surgery). Fluids: 1 ml/Kcal, or as per MD. Nutrition Intervention Change Diet Order: Continue NPO, as per MD. When pertinent, advance to Regular Diet. Goal #1 Maintain body weight within +/ -3% of current BWt during LOS. Goal #2 Reach and maintain acceptable chemistry lab values during LOS. Follow-Up By: 03/25/21 Additional Comments Continue monitoring Hydration and BM. When pertinent, food tolerance and %PO intake of meals.
[2021-03-26 02:52] VITALS: BP 143/76
[2021-03-26 06:24] LABS: Basophils # (Auto) 0.1 K/mm3 (0.0-0.1); Basophils % (Auto) 0.8 % (0.0-1.8); Eosinophils # (Auto) 0.1 K/mm3 (0.0-0.4); Eosinophils % (Auto) 1.3 % (0.0-4.3); Hematocrit 35.5 % (35.5-45.6); Hemoglobin 11.6 gm/dl (11.8-15.2); Lymphocytes # (Auto) 1.2 K/mm3 (1.2-5.4); Lymphocytes % (Auto) 13.8 % (13.4-35.0); Mean Corpuscular HGB Conc 33 % (32-34); Mean Corpuscular Volume 90 fl (84-94); Monocytes # (Auto) 0.7 K/mm3 (0.0-0.8); Monocytes % (Auto) 8.2 % (0.0-7.3); Platelet Count 164 K/mm3 (140-440); Red Blood Count 3.94 M/mm3 (3.65-5.03); Red Cell Distribution Width 14.3 % (13.2-15.2)
[2021-03-26 06:42] LABS: Blood Urea Nitrogen 7 mg/dL (9-20); Calcium 7.4 mg/dL (8.4-10.2); Hemolysis Index 3
[2021-03-26 06:44] LABS: BUN/Creatinine Ratio 12
[2021-03-26] MEDS: SODIUM CHLORIDE 0.9% 1000 ML 1,000 ML IV SCH (07:01)
[2021-03-26] MEDS: MORPHINE 2 MG/1 ML INJ IV PRN ×2 (07:06→13:29)
[2021-03-26] MEDS ORDERED: POTASSIUM CHLORIDE ER 20 MEQ TAB PO NR (08:00)
[2021-03-26] MEDS ORDERED: CALCIUM GLUCONATE 1,000 MG in SODIUM CHLORIDE 0.9% 100 ML IV ONE (09:00)
[2021-03-26] MEDS: POTASSIUM CHLORIDE 10 MEQ 10 MEQ/100 ML BAG IV SCH ×2 (11:12→12:51)
--- NOTE | 2021-03-26 13:57 | Discharge Summary ---
Providers - Providers Date of Admission: 03/23/21 09:25 Date of discharge: 03/26/21 Attending physician: INES FRANCOIS MD 03/23/21 00:19 Consult to Physician [CONS] Stat Comment: Consulting Provider: YENI MONTERO Physician Instructions: Reason For Exam: Small bowel obstruction incarcerated hernia Primary care physician: [facility] Hospitalization Reason for admission: Incarcerated left inguinal hernia Condition: Stable Pertinent studies: Reviewed. Procedures: Left inguinal hernia correction Hospital course: Patient is 60-year-old male with no significant past medical history who presented for worsening left inguinal pain and abdominal pain complicated by nausea and bilious, nonbloody vomiting. The patient was last seen at [facility] approximately 2 years ago, and he was supposed to have an inguinal hernia repair in August 2020; however, the surgery was postponed in the setting of the Covid [address] abdomen/pelvis revealed high-grade small bowel obstruction secondary to a large bowel containing left inguinal hernia. Patient underwent left inguinal hernia repair (03/23/2021), and tolerated the procedure well. Patient had an NG tube placed for decompression of the high-grade SBO, which resolved without incident. The patient was transitioned to a regular diet and deemed ready for discharge. The patient will follow up with general surgery (Dr. Montero) in 2 weeks. Patient expressed understanding. Disposition: 01 HOME / SELF CARE / HOMELESS Final Discharge Diagnosis (Prints w/discharge instructions): Incarcerated left inguinal hernia s/p correction; high-grade small bowel obstruction Time spent for discharge: 45 minutes Core Measure Documentation - Palliative Care Palliative Care/ Comfort Measures: Not Applicable - Core Measures Any of the following diagnoses?: none - VTE Discharge Requirements Deep Vein Thrombosis/Pulmonary Embolism Present on Admission: No Has pt received <5 days of overlap therapy or INR<2.0: No (Not indicated) Anticoagulant overlap therapy prescribed at discharge: No Contraindication No Overlap Therapy order at DC: Not Indicated - Acute CO Discharge Requirements Aspirin at discharge: No Reason for no aspirin on DC: Medical contraindication (Not indicated) NGOC/ARB for LVSD if EF <40%: Not Applicable Reason for no NGOC/ARB: Medical contraindication (Not indicated) Beta joseph at discharge: No Reason for no beta joseph on DC: Medical contraindication (Not indicated) Statin for LDL = or >100 mg/dl on DC: Not Applicable Reason for no statin on DC: Medical contraindication (Not indicated) - Heart Failure Discharge Requirements NGOC/ARB for LVSD if EF <40%: Not Applicable Reason for no NGOC/ARB: Medical contraindication (Not indicated) Beta joseph at discharge: No Reason for no beta joseph on DC: Medical contraindication (Not indicated) - Stroke Discharge Requirements Statin for LDL = or >70 mg/dl on DC: Not Applicable Reason for no statin on DC: Not Indicated Anticoag for atrial fib/atrial flutter: Not Applicable Reason for no anticoag for AF/F on DC: Not Indicated Antithrombotic for ischemic stroke: No Reason for no antithrombotic on DC: Not Indicated Exam - Constitutional Vitals: Temp Pulse Resp BP Pulse Ox 98.7 F 74 20 143/76 96 03/25/21 23:30 03/25/21 23:30 03/25/21 23:30 03/25/21 23:30 03/25/21 23:30 General appearance: Present: no acute distress, well-nourished - EENT Eyes: Present: PERRL, EOM intact ENT: hearing intact, clear oral mucosa, dentition normal - Neck Neck: Present: supple, normal ROM - Respiratory Respiratory effort: normal Respiratory: bilateral: CTA - Cardiovascular Rhythm: regular Heart Sounds: Present: S1 & S2 - Extremities Extremities: no ischemia, pulses intact, pulses symmetrical, No edema, normal temperature, normal color Peripheral Pulses: within normal limits - Abdominal General gastrointestinal: Present: soft, tender (Mild tenderness of the left inguinal region on moderate palpation), non-distended, normal bowel sounds Male genitourinary: Present: deferred - Rectal Rectal Exam: deferred - Integumentary Integumentary: Present: clear, warm, dry - Musculoskeletal Musculoskeletal: strength equal bilaterally - Psychiatric Psychiatric: appropriate mood/affect, intact judgment & insight, memory intact, cooperative - Neurologic Neurologic: CNII-XII intact, moves all extremities - Allied Health Allied health notes reviewed: nursing Plan Activity: no restrictions, advance as tolerated Diet: regular Wound: keep clean and dry, per your surgeon's advice Care Plan Goals: Patient safe to discharge home. Assessment: The patient was admitted for an incarcerated left inguinal hernia and high-grade small bowel obstruction requiring correction by general surgery. Patient was successfully transitioned to a full diet. Patient will follow up with Dr. Montero (general surgery) in clinic in 2 weeks. Follow up with: PRIMARY CARE, [Primary Care Provider] - 7 Days YENI MONTERO MD [Staff Physician] - 14 Days Prescriptions: HYDROcodone/APAP 5-325 [[place] 5/325] 1 each PO Q6HR PRN #12 tablet PRN Reason: Pain
[2021-03-26] MEDS ORDERED: POTASSIUM CHLORIDE ER 20 MEQ TAB PO ONE (15:00)
== END 2021-03-26 16:49 | disposition home or self-care (01) | DRG 354 ==
LOC: ED 19:34 → 3A 03-23 01:49 → OBSVTOIN 03-23 09:25
PROVIDERS: ADMIT Internal Medicine Geriatric Medicine; ATTEND Student in an Organized Health Care Education/Training Program
PROC: 0WQF0ZZ Repair Abdominal Wall, Open Approach (ICD-10-PCS; principal; 2021-03-23)
DX: K40.30 Unilateral inguinal hernia, with obstruction, without gangrene, not specified as recurrent (principal); K56.609 Unspecified intestinal obstruction, unspecified as to partial versus complete obstruction
CPT/HCPCS: 36415; 74177; 80048; 83735; 84100; 85007; 85025; 85610; G0378; J1815; J3490; J7120; Q0162; J0610; J1100; J1170; J1885; J2250; J2270; J2405; J2704; J2710; J3010; J3480; J7030; Q9967